=== PATIENT | female | born 1995 | race Caucasian/White ===

== ENCOUNTER 2019-02-23 10:48 | Inpatient (IN) | payer BC ==
[2019-02-23 12:44] LABS: RUPTURE FETAL MEMBRANES NEGATIVE (NEGATIVE)
[2019-02-23] MEDS ORDERED: LIDOCAINE 1% (MPF) 30 ML INJ INJ (14:30)
[2019-02-23] MEDS ORDERED: OXYTOCIN 30 UNITS/LR 500 ML IV ×3 (14:30)
[2019-02-23] MEDS ORDERED: CARBOPROST 250 MCG INJ IM (14:30)
[2019-02-23] MEDS ORDERED: METHYLERGONOVINE 0.2 MG INJ IM (14:30)
[2019-02-23] MEDS ORDERED: MISOPROSTOL 200 MCG TAB PR (14:30)
[2019-02-23 16:04] LABS: ADD MAN DIFF? NO
[2019-02-23 16:07] LABS: WHITE BLOOD COUNT 11.5 10^3/ul (4.8-10.8)
[2019-02-23 16:07] LABS: BASOPHILS % 0.3 % (0.0-2.0); EOSINOPHILS # 0.1 10^3/ul (0.0-0.5); EOSINOPHILS % 0.8 % (0.0-7.0); HEMATOCRIT 31.4 % (37.0-47.0); HEMOGLOBIN 9.8 g/dl (12.0-16.0); LYMPHOCYTES # 1.7 10^3/ul (0.8-2.9); LYMPHOCYTES % 15.2 % (15.0-51.0); MEAN CORPUSCULAR HEMOGLOBIN 27.1 pg (29.0-33.0); MEAN CORPUSCULAR HGB CONC 31.2 g/dl (32.0-37.0); MEAN PLATELET VOLUME 12.3 fl (7.4-10.4); MONOCYTE # 1.1 10^3/ul (0.3-0.9); MONOCYTES % 9.2 % (0.0-11.0); NEUTROPHIL # 8.5 10^3/ul (1.6-7.5); NEUTROPHILS % 73.8 % (39.0-77.0); PLATELET COUNT 184 10^3/UL (140-415); RED BLOOD COUNT 3.61 10^6/ul (4.20-5.40); RED CELL DISTRIBUTION WIDTH 14.4 % (11.5-14.5)
[2019-02-23 16:26] LABS: INR 0.94; PROTIME 12.7 Sec (11.9-14.9)
[2019-02-23 16:27] LABS: PARTIAL THROMBOPLASTIN TIME 27.7 Sec (23.0-35.0)
[2019-02-23 16:58] LABS: HEPATITIS B SURFACE ANTIGEN NEGATIVE (NEGATIVE)
[2019-02-23] MEDS: LACTATED RINGER'S 1,000 ML IV (17:09)
[2019-02-23] MEDS: OXYTOCIN 30 UNITS/LR 500 ML IV (17:37)
[2019-02-24] MEDS: BUTORPHANOL 2 MG INJ IV (01:23)
[2019-02-24] MEDS: LACTATED RINGER'S 1,000 ML IV ×4 (01:27→22:09)
[2019-02-24] MEDS ORDERED: FENTAnyl 2MCG/ML-ROPIV 0.2% 100 ML (08:10)
[2019-02-24] MEDS ORDERED: NALBUPHINE HCL (10 MG/1 ML) INJ IV (08:30)
[2019-02-24] MEDS ORDERED: ONDANSETRON 4 MG INJ IV ×2 (08:30→15:30)
[2019-02-24] MEDS ORDERED: NALOXONE (0.4 MG/ML) INJ IV (08:30)
[2019-02-24] MEDS ORDERED: DIPHENHYDRAMINE 50 MG INJ IV (08:30)
[2019-02-24] MEDS: FENTAnyl 2MCG/ML-ROPIV 0.2% 100 ML BAG EPI (08:52)
[2019-02-24] MEDS ORDERED: AMPICILLIN 2 GM/NS (PMX) 100 ML (09:22)
[2019-02-24] MEDS: AMPICILLIN 2 GM/NS (PMX) 100 ML IV (09:28)
[2019-02-24] MEDS: AMPICILLIN 1 GM/NS (PMX) 50 ML IV (12:55)
[2019-02-24] MEDS: GENTAMICIN 80 MG/NS (PMX) 50 ML IVPB ×2 (14:07→22:09)
[2019-02-24] MEDS ORDERED: ZOLPIDEM 5 MG TAB PO (15:30)
[2019-02-24] MEDS ORDERED: HYDROCODONE/APAP (5/325) TAB PO (15:30)
[2019-02-24] MEDS ORDERED: OXYTOCIN 30 UNITS/LR 500 ML IV (15:30)
[2019-02-24] MEDS ORDERED: DIPHENHYDRAMINE 25 MG CAP PO (15:30)
[2019-02-24] MEDS ORDERED: CARBOPROST 250 MCG INJ IM (15:30)
[2019-02-24] MEDS ORDERED: NACL 0.9% 3 ML SYG IV (15:30)
[2019-02-24] MEDS ORDERED: MISOPROSTOL 200 MCG TAB PR (15:30)
[2019-02-24] MEDS: IBUPROFEN 600 MG TAB PO ×2 (15:59→18:00)
[2019-02-24] MEDS: OXYTOCIN 30 UNITS/LR 500 ML IV (16:05)
[2019-02-24 16:10] LABS: RAPID PLASMA REAGIN NONREACTIVE (NR)
[2019-02-24] MEDS: PRENATAL VITAMIN PO (16:52)
[2019-02-24] MEDS: WITCH HAZEL/GLYCERIN PAD PR (18:20)
[2019-02-24] MEDS ORDERED: BENZOCAINE 20% 56 ML SPRAY TOP (18:30)
[2019-02-24] MEDS: CLINDAMYCIN 900 MG (PMX) 50 ML IVPB (21:57)
[2019-02-24] MEDS: SENNA/DOCUSATE NA (8.6MG/50MG) TAB PO (22:07)
[2019-02-25] MEDS: IBUPROFEN 600 MG TAB PO ×4 (01:26→18:25)
[2019-02-25] MEDS: LACTATED RINGER'S 1,000 ML IV (01:29)
[2019-02-25] MEDS: CLINDAMYCIN 900 MG (PMX) 50 ML IVPB ×2 (05:10→14:01)
[2019-02-25] MEDS: GENTAMICIN 80 MG/NS (PMX) 50 ML IVPB ×2 (05:35→14:07)
[2019-02-25 08:18] LABS: HEMATOCRIT 29.4 % (37.0-47.0); HEMOGLOBIN 9.1 g/dl (12.0-16.0)
[2019-02-25] MEDS: SENNA/DOCUSATE NA (8.6MG/50MG) TAB PO ×2 (08:33→22:15)
[2019-02-25] MEDS: PRENATAL VITAMIN PO (08:33)
[2019-02-25] MEDS: LANOLIN HPA 1 PKT TOP (08:34)
[2019-02-26] MEDS: IBUPROFEN 600 MG TAB PO ×3 (00:53→12:12)
[2019-02-26 06:42] LABS: ADD MAN DIFF? NO
[2019-02-26 06:46] LABS: BASOPHIL # 0.1 10^3/ul (0.0-0.1); BASOPHILS % 0.5 % (0.0-2.0); EOSINOPHILS # 0.2 10^3/ul (0.0-0.5); EOSINOPHILS % 1.6 % (0.0-7.0); HEMATOCRIT 28.8 % (37.0-47.0); LYMPHOCYTES # 2.5 10^3/ul (0.8-2.9); LYMPHOCYTES % 20.4 % (15.0-51.0); MEAN CORPUSCULAR HEMOGLOBIN 26.7 pg (29.0-33.0); MEAN CORPUSCULAR HGB CONC 31.3 g/dl (32.0-37.0); MEAN CORPUSCULAR VOLUME 85.5 fl (82.0-101.0); MEAN PLATELET VOLUME 11.6 fl (7.4-10.4); MONOCYTES % 8.2 % (0.0-11.0); NEUTROPHIL # 8.4 10^3/ul (1.6-7.5); NEUTROPHILS % 68.6 % (39.0-77.0); PLATELET COUNT 179 10^3/UL (140-415); RED BLOOD COUNT 3.37 10^6/ul (4.20-5.40)
[2019-02-26 06:46] LABS: WHITE BLOOD COUNT 12.3 10^3/ul (4.8-10.8)
[2019-02-26] MEDS: VARICELLA VACCINE LIVE/PF 1,350 UNIT/0.5 ML ML SC* (09:00)
[2019-02-26] MEDS: PRENATAL VITAMIN PO (09:00)
[2019-02-26] MEDS: MEASLES,MUMPS,RUBELLA VACCINE INJ SC* (09:00)
[2019-02-26] MEDS: SENNA/DOCUSATE NA (8.6MG/50MG) TAB PO (09:01)
[2019-02-26] MEDS: FERROUS SULFATE (EC) 325 MG TAB PO (09:01)
[2019-02-26] MEDS: DIPHTH/TET/ACEL PERTUSS (ADULT) 0.5 ML VIAL IM* (12:28)
== END 2019-02-26 13:50 | disposition home or self-care (01) | DRG 807 ==
LOC: OBT 10:48 → PP1 02-24 18:02 → L-D 10:48 → OBT 14:10 → L-D 14:41
PROVIDERS: Obstetrics & Gynecology
PROC: 10E0XZZ Delivery of Products of Conception, External Approach (ICD-10-PCS; principal; 2019-02-24)
PROC: 0KQM0ZZ Repair Perineum Muscle, Open Approach (ICD-10-PCS; 2019-02-24)
DX: O70.1 Second degree perineal laceration during delivery (principal); Z37.0 Single live birth; Z3A.40 40 weeks gestation of pregnancy
CPT/HCPCS: 62322; 76818; 84112; 85014; 85018; 85025; 85610; 85730; 86592; 86850; 86900; 86901; 87340; 90715; 90716; 99464